=== PATIENT | female | born 1945 | race Caucasian/White ===

== ENCOUNTER 2022-03-30 01:27 | Day surgery (SDC) | payer MEDICARE, OTHER, SELFPAY ==
[2022-03-12 15:13] VITALS: BMI 27.4
[2022-03-30 09:55] VITALS: BP 176/74; PULSE 76; RESP 18; TEMP 36.4; O2SAT 100; BMI 28.8
[2022-03-30] MEDS: LACTATED RINGERS 1,000 ML 150 ML IV CONT (10:12)
--- NOTE | 2022-03-30 10:16 | P.PNAN_ITS ---
Anes - Initial Pre Proc Eval Procedure: Operation Date: 03/30/22 11:00 Proposed Procedures p Screening Colonoscopy - Mckay Anthony MD Date/Time: 03/30/22 10:16 Surgeon: Mckay Anthony MD Pre Op Diagnosis: family hx colon ca Patient Data Age: 76 Gender: F Height: 1.52 m Weight: 67 kg Last Vital Signs Temp 36.4 C L 03/30/22 09:55 Pulse 76 03/30/22 09:55 Resp 18 03/30/22 09:55 BP 176/74 H 03/30/22 09:55 Pulse Ox 100 03/30/22 09:55 O2 Del Method Room Air 03/30/22 09:55 Allergies Allergy/AdvReac Type Severity Reaction Status Date / Time codeine AdvReac Intermediate Gastrointestinal Verified 03/30/22 10:04 Upset diphtheria,pertussis AdvReac Intermediate Unknown Verified 03/30/22 10:04 (acellular),te [From Adacel(Tdap Adolesn/Adult)(PF)] asprin AdvReac Intermediate Gastrointestinal Uncoded 03/30/22 10:04 Upset Home Medications Medication Instructions Recorded Confirmed Type cholecalciferol (vitamin D3) 50 50 mcg PO DAILY 02/03/22 03/30/22 History mcg (2,000 unit) capsule losartan 25 mg tablet 25 mg PO DAILY #90 tabs 02/03/22 03/30/22 Rx alprazolam 0.25 mg tablet (Xanax) 0.25 mg PO TID PRN anxiety #90 tabs 03/02/22 03/30/22 Rx mecobalamin (vitamin B12) 1,000 1,000 mcg PO DAILY 03/12/22 03/30/22 History mcg chewable tablet Patient hx anesthesia problems: none Family hx anesthesia problems: none Results Review: All pre-operative results and documents have been reviewed as part of the pre- operative evaluation. [facility] Past Medical History Medical History Anxiety HTN (hypertension), benign Periodic health assessment, general screening, adult Post-COVID chronic cough Screening for colon cancer Social History Social History Smoking status: Never smoker Alcohol intake: current Drinks per week: 5 Substance use type: does not use Living arrangements: with family Spiritual care concerns: No Anes - Eval Final PreProcedure Day of Procedure 03/30/22 10:16 Patient weight: overweight Heart: regular rate and rhythm Lungs: clear to auscultation Airway: Mallampati scale class II Neurological: alert and oriented Last oral intake: >/= 8 hours ASA classification: II Emergent: no Anesthesia type and monitoring: general GIVS and standard monitoring Results Review: All pre-operative results and documents have been reviewed as part of the pre- operative evaluation. Informed Consent: The patient's anesthetic plan and its attendant risks and benefits were discussed with the patient/family/POA. Questions were solicited and answers provided to the satisfaction of the patient/family/POA.
--- NOTE | 2022-03-30 10:35 | P.HP_ITS ---
History of Present Illness History of Present Illness Consent: Risks, benefits, and alternatives have been discussed and questions answered. Patient agrees to proceed with procedure. Chief complaint: family hx colon ca Narrative: Aidee Forde is a 76 year old female Presents for screening colonoscopy. Patient reports that her current weight appetite bowel movements are normal. She denies abdominal pain. She has had no bleeding. Family history is si gnificant her mother had colon cancer her also had colon cancer. Patient presents today for screening colonoscopy. Review of Systems Review of Systems: Review of systems noncontributory. [facility] Past Medical History Medical History Anxiety HTN (hypertension), benign Periodic health assessment, general screening, adult Post-COVID chronic cough Screening for colon cancer Social History Social History Smoking status: Never smoker Alcohol intake: current Drinks per week: 5 Substance use type: does not use Living arrangements: with family Spiritual care concerns: No Meds Home Medications and Allergies Home Medications Medication Instructions Recorded Confirmed Type cholecalciferol (vitamin D3) 50 50 mcg PO DAILY 02/03/22 03/30/22 History mcg (2,000 unit) capsule losartan 25 mg tablet 25 mg PO DAILY #90 tabs 02/03/22 03/30/22 Rx alprazolam 0.25 mg tablet (Xanax) 0.25 mg PO TID PRN anxiety #90 tabs 03/02/22 1 Rx mecobalamin (vitamin B12) 1,000 1,000 mcg PO DAILY 03/12/22 03/30/22 History mcg chewable tablet Allergies Allergy/AdvReac Type Severity Reaction Status Date / Time codeine AdvReac Intermediate Gastrointestinal Verified 03/30/22 10:04 Upset diphtheria,pertussis AdvReac Intermediate Unknown Verified 03/30/22 10:04 (acellular),te [From Adacel(Tdap Adolesn/Adult)(PF)] asprin AdvReac Intermediate Gastrointestinal Uncoded 03/30/22 10:04 Upset Vital Signs Vital Signs - 24 hr 03/30/22 09:55 Temperature 97.5 F L Pulse Rate 76 Respiratory Rate 18 Blood Pressure 176/74 H Pulse Oximetry 100 Oxygen Delivery Room Air Exam Narrative: Physical exam reveals patient to be alert. Vital signs stable. HEENT exam is unremarkable. Patient is anicteric. Lungs are clear to auscultation and percussion. Heart is without murmur or extra sounds. Abdomen bowel sounds are present soft nontender with no organomegaly. Digital external rectal exam is normal. Assessment and Plan Assessment and plan (1) Screening for colon cancer: Code(s): Z12.11 - Encounter for screening for malignant neoplasm of colon Status: Acute Assessment and Plan: Patient presents for screening colonoscopy. She has a family history of colon cancer in her mother as well as her having had colon cancer. Plan for surveillance colonoscopy at 5 year intervals.
[2022-03-30 11:02] VITALS: BP 119/65; PULSE 73; RESP 13; O2SAT 97
[2022-03-30 11:12] VITALS: BP 122/69; PULSE 72; RESP 16; O2SAT 97
[2022-03-30 11:22] VITALS: BP 122/84; PULSE 71; RESP 18; O2SAT 99
== END 2022-03-30 11:25 | disposition home or self-care (01) ==
PROVIDERS: PCP Physician Assistant Medical; Visit Provider Internal Medicine Gastroenterology
PROC: 0DJD8ZZ Inspection of Lower Intestinal Tract, Via Natural or Artificial Opening Endoscopic (ICD-10-PCS; CPT 45378; principal; 2022-03-30 11:00)
DX: Z12.11 Encounter for screening for malignant neoplasm of colon (principal); K64.8 Other hemorrhoids; K57.30 Diverticulosis of large intestine without perforation or abscess without bleeding; Z80.0 Family history of malignant neoplasm of digestive organs; I10 Essential (primary) hypertension; F41.9 Anxiety disorder, unspecified
CPT/HCPCS: G0105; J2001; J2704; J7120

== ENCOUNTER 2023-05-31 09:36 | Emergency (ER) | payer MEDICARE, OTHER, SELFPAY ==
[2023-05-31 10:03] VITALS: BP 128/65; PULSE 88; RESP 16; TEMP 36.5; O2SAT 99
--- NOTE | 2023-05-31 10:39 | ED.URI ---
HPI - URI/Sore Throat General Chief Complaint: Urogenital-Female Stated Complaint: Urinary Problems and Sore Throat Time Seen by Provider: 05/31/23 10:20 Source: patient Mode of arrival: ambulatory Limitations: no limitations History of Present Illness HPI Narrative: Aidee is a 77-year-old female patient presenting to the clinic today with complaints of possible UTI. She reports that she is having urinary symptoms started last night with burning and frequency of urination. Also complaining of a cough with congestion and sore throat. MD elicited complaint: cough, sore throat, nasal congestion and other (UTI) Related Data Home Medications Medication Instructions Recorded Confirmed cholecalciferol (vitamin D3) 50 50 mcg PO DAILY 02/03/22 02/18/23 mcg (2,000 unit) capsule mecobalamin (vitamin B12) 1,000 1,000 mcg PO DAILY 03/12/22 02/18/23 mcg chewable tablet vitamin E (dl, acetate) 45 mg (100 45 mg PO DAILY 02/18/23 02/18/23 unit) capsule Allergies Allergy/AdvReac Type Severity Reaction Status Date / Time codeine AdvReac Intermediate Gastrointestinal Verified 02/18/23 10:11 Upset diphtheria,pertussis AdvReac Intermediate Unknown Verified 02/18/23 10:11 (acellular),te [From Adacel(Tdap Adolesn/Adult)(PF)] asprin AdvReac Intermediate Gastrointestinal Uncoded 02/18/23 10:11 Upset Review of Systems Review of Systems: Pertinent positives per HPI. Patient denies any fever, chills, rash, headache, visual changes, dizziness, shortness of breath, chest pain, palpitations, nausea, vomiting, diarrhea, constipation, abdominal pain PMF Past Medical History Medical History (Updated 05/31/23 @ 10:41 by Sebastian Masters APRN) Anxiety HTN (hypertension), benign Post-COVID chronic cough Screening for colon cancer Vitamin D deficiency Social History Social History Smoking status: Never smoker Alcohol intake: current Drinks per week: 5 Substance use type: does not use Living arrangements: with family Spiritual care concerns: No Comments At the time of my signature, I reviewed and agree with the nursing past medical, surgical, social, and family history. There is no relevant family history pertinent to the patient complaint. Exam Narrative: General: Well-developed, well nourished, in no apparent distress Head: Normocephalic, atraumatic Eyes: Pupils equally round and reactive to light bilaterally, EOM intact, sclera and conjunctive clear, no discharge, lids normal Ears: TMs intact and clear, ear canals clear, no drainage, grossly hearing normal. Nose: Nares patent, clear nasal discharge, no inflammation, no sinus tenderness. Mouth: Oral pharynx red without lesions or masses, good dentition, MMM. Neck: Supple, trachea midline, no enlargement of anterior or posterior cervical nodes, no thyroid masses or goiter palpable. Cardio: Regular rate and rhythm, s1 and s2 normal, no murmur appreciated. Resp: Clear to auscultation bilaterally, no rhonchi, rales, wheezing or rubs Abdomen: Soft, pliable, bowel sounds present in all quadrants, non-tender to palpation, no organomegly, no CVAT tenderness. Course Course Emergency Course: Portions of this record may have been created with voice recognition software. Level of Care: Express Care Visit Vital Signs Vital signs: Vital Signs Temperature 36.5 C 05/31/23 10:03 Pulse Rate 88 05/31/23 10:03 Respiratory Rate 16 05/31/23 10:03 Blood Pressure 128/65 05/31/23 10:03 Pulse Oximetry 99 05/31/23 10:03 Temperature 36.5 C 05/31/23 10:03 Pulse Rate 88 05/31/23 10:03 Respiratory Rate 16 05/31/23 10:03 Blood Pressure 128/65 05/31/23 10:03 Pulse Oximetry 99 05/31/23 10:03 Vital signs reviewed MDM - URI/Sore Throat MDM Narrative Medical decision making narrative: At the time of visit patient is resting comfortably on the ex
== END 2023-05-31 10:50 | disposition home or self-care (01) ==
PROVIDERS: Emergency Provider Nurse Practitioner Family; PCP Physician Assistant Medical
DX: J06.9 Acute upper respiratory infection, unspecified (principal); J02.9 Acute pharyngitis, unspecified; N39.0 Urinary tract infection, site not specified; I10 Essential (primary) hypertension; E55.9 Vitamin D deficiency, unspecified; Z20.822 Contact with and (suspected) exposure to COVID-19
CPT/HCPCS: 81003; 87077; 87081; 87086; 87186; 87426; 87804; 87880; 99213; C9803; G0463

== ENCOUNTER 2023-08-02 08:44 | Outpatient (CLI) | payer MEDICARE, OTHER, SELFPAY ==
--- NOTE | ~2023-08-02 | DEXA_ITS ---
Bone Density Report Name: JASON HARDING I Age: 77 Sex: Female Ethnicity: White Date of : 1945 Indication: postmenopausal; screening for osteoporosis; height loss; hysterectomy; Referring Provider: LIVE LECHUGA I. Study: Bone densitometry was performed. Exam Date: August 02, 2023 Accession number: [id number] Bone Density: Region BMD T-score Z-score Classification AP Spine(L1-L4) 0.763 -2.6 0.0 Osteoporosis Femoral Neck (Left) 0.736 -1.0 1.2 Normal Total Hip (Left) 0.776 -1.4 0.6 Osteopenia Femoral Neck (Right) 0.609 -2.2 0.1 Osteopenia Total Hip (Right) 0.689 -2.1 -0.1 Osteopenia Total Hip Mean 0.732 -1.8 0.3 Osteopenia World Health Organization criteria for BMD impression classify patients as: Normal (T-score at or above -1.0), Osteopenia (T-score between -1.0 and -2.5), or Osteoporosis (T-score at or below -2.5). 10-year Fracture Risk: FRAX not reported because: Some T-score for Spine Total or Hip Total or Femoral Neck at or below -2.5 Clinical Information Provided by Patient: Has used the following medications: Vitamin D Has the following medical conditions: Hysterectomy Patient maximum height was 61 Menopause Age: 52 Does not regularly consume dairy products Drinks caffeinated beverages Onset of menses at age 10 Number of children 2 Impression: The patient has osteoporosis, based on the Total Spine T-score. Discussion: INCREASED RISK OF FRACTURE. BONE DENSITY IS UNDESIRABLY LOW AT ONE OR MORE SKELETAL SITES, CONSISTENT WITH POSTMENOPAUSAL OSTEOPOROSIS. This patient's lowest T-score meets the World Health Organization's (WHO) criteria for osteoporosis at one or more sites (T-score -2.5 or below). In untreated patients, the risk of osteoporotic fracture increases approximately two-fold for each 1.0 SD decrease in T-score. Low bone density is not the only risk factor for fracture; also consider factors such as patient's age, frailty or poor health, risk of falling, risk of injury, previous osteoporotic fracture, family history of osteoporosis, cigarette smoking, low body weight, etc. Not everyone with low bone mineral density has osteoporosis; osteomalacia and other metabolic bone disorders should also be considered. Patients who have osteoporosis should be evaluated for specific diseases and conditions (secondary causes) that may cause or contribute to bone loss. The [place] [employer]ocrinologists (AACE) and National Osteoporosis Foundation (NOF) recommend pharmacologic intervention for all postmenopausal women whose T-score is in this range. The patient should follow a healthful lifestyle (good nutrition with adequate calcium and vitamin D, and appropriate weight-bearing exercise). Follow-Up: Consider a repeat BMD and Vertebral Fracture Assessment (V
== END 2023-08-02 08:45 | disposition home or self-care (01) ==
PROVIDERS: PCP Physician Assistant Medical; Visit Provider Physician Assistant Medical
DX: E89.40 Asymptomatic postprocedural ovarian failure (principal); M81.0 Age-related osteoporosis without current pathological fracture; M85.852 Other specified disorders of bone density and structure, left thigh; M85.851 Other specified disorders of bone density and structure, right thigh
CPT/HCPCS: 77080

== ENCOUNTER 2024-02-24 11:51 | Emergency (ER) | payer MEDICARE, OTHER, SELFPAY ==
[2024-02-24 12:03] VITALS: BP 107/77; PULSE 84; RESP 16; TEMP 36.6; O2SAT 99
--- NOTE | 2024-02-24 12:16 | ED.EAR ---
HPI - Ear Problem General Chief complaint: Ear Stated complaint: Ear Pain Time Seen by Provider: 02/24/24 12:17 Source: patient, RN notes reviewed and old records reviewed Mode of arrival: ambulatory Limitations: no limitations History of Present Illness HPI Narrative: 78-year-old female to Express Care with complaint of right ear pressure, sensation of swelling, postnasal drainage for 3 days. Patient also endorsing decreased hearing in right ear. Patient denies fever, sore throat, cough, pain, pertinent medical history. Patient reports that symptoms were acutely worse upon awakening this morning. Patient able to tolerate fluids by mouth. Patient resting in exam room in no acute distress. Respirations even and nonlabored. Patient able to speak in complete sentences without difficulty. Related Data Home Medications Medication Instructions Recorded Confirmed mecobalamin (vitamin B12) 1,000 1,000 mcg PO DAILY 03/12/22 02/24/24 mcg chewable tablet vitamin E (dl, acetate) 45 mg (100 45 mg PO DAILY 02/18/23 02/24/24 unit) capsule calcium 650 mg-vitamin D3 12.5 1 tablet PO DAILY 11/10/23 02/24/24 mcg-vitamin K 40 mcg chewable tablet (Viactiv) Allergies Allergy/AdvReac Type Severity Reaction Status Date / Time codeine AdvReac Intermediate Gastrointestinal Verified 11/10/23 15:16 Upset diphtheria,pertussis AdvReac Intermediate Unknown Verified 11/10/23 15:16 (acellular),te [From Adacel(Tdap Adolesn/Adult)(PF)] asprin AdvReac Intermediate Gastrointestinal Uncoded 11/10/23 15:16 Upset Review of Systems Review of Systems: All systems reviewed & are unremarkable except as noted in HPI and below Constitutional: Constitutional: Reports no additional constitutional complaints Eyes: Eyes: Reports no additional eye complaints ENT: Reports as per HPI, Reports otalgia (Right ear pressure, swelling) and Reports post nasal drip Cardiovascular: Cardiovascular: Reports no additional cardiovascular complaints, Denies chest pain and Denies dyspnea Respiratory: Respiratory: Reports no additional respiratory complaints, Denies cough and Denies dyspnea Musculoskeletal: Musculoskeletal: Reports no additional musculoskeletal complaints Neurologic: Reports system reviewed and no additional complaints, except as documented Psychiatric: Psychiatric: Reports no additional psychiatric complaints PMFSH Past Medical History Medical History Anxiety Bilateral lower extremity edema HTN (hypertension), benign Post-COVID chronic cough Screening for colon cancer Vitamin D deficiency Social History Social History Smoking status: Never smoker Alcohol intake: current Drinks per week: 5 Substance use type: does not use Living arrangements: with family Spiritual care concerns: No Comments At the time of my signature, I reviewed and agree with the nursing past medical, surgical, social, and family history. There is no relevant family history pertinent to the patient complaint. Exam Const: General: cooperative, healthy appearing, comfortable, no acute distress, alert and well nourished Nutritional Appearance: well nourished Orientation/consciousness: patient oriented x3 Limitations: no limitations HENMT: Head: normal to inspection Ears: external ears normal, Abnormal EAC present EAC tenderness on the right and TM abnormal dull on the right, with fluid behind the TM on the right and with loss of landmarks on the right Face/Nose/Sinus: Normal external nose present, Normal nares present, normal facial exam, No erythema and No edema Face and sinus: normal facial exam, no erythema and no edema Mouth: Yes Normal oral and palatal mucosa present Throat: postnasal drainage Eyes: General: appearance normal, both eyes and all related structures Neck: Neck: normal visual inspectio
== END 2024-02-24 12:46 | disposition home or self-care (01) ==
PROVIDERS: Emergency Provider Nurse Practitioner Family; PCP Physician Assistant Medical
DX: H66.91 Otitis media, unspecified, right ear (principal); I10 Essential (primary) hypertension; Z86.16 Personal history of COVID-19; E55.9 Vitamin D deficiency, unspecified
CPT/HCPCS: 99213; G0463

== ENCOUNTER 2024-05-09 10:08 | Outpatient (CLI) | payer MEDICARE, OTHER, SELFPAY ==
--- NOTE | ~2024-05-09 | US_ITS ---
EXAMINATION: US_VDOPREFBI_US DATE: 05/09/2024 11:21 INDICATION: Lower limb edema. TECHNIQUE: Grayscale ultrasound images without and with compression and Doppler ultrasound images of the bilateral lower extremity veins were obtained. COMPARISON: None. FINDINGS: The visualized portions of right common femoral vein, profunda (deep) femoral vein, femoral vein, pop liteal vein, peroneal veins, and posterior tibial veins are patent. Regular saphenous vein measures 4 mm in the upper thigh, 2 mm in the lower thigh, and 3 mm in the calf without reflux. Right small sap henous vein measures 3 mm in the upper calf and 2 mm in the lower calf without reflux. The visualized portions of left common femoral vein, profunda femoral vein, femoral vein, popliteal v ein, peroneal veins, and posterior tibial veins are patent. Left greater saphenous vein measures 3 mm in the upper thigh, 3 mm in the lower thigh, and 2 mm in the calf without reflux. Left small sapheno us vein measures 3 mm in the upper calf and 2 mm in the lower calf without reflux. IMPRESSION: 1. No reflux. Reviewed, dictated and finalized at location A. [employer] DEVELOPER IMPRESSION: 1. No reflux.
== END 2024-05-09 10:09 | disposition home or self-care (01) ==
PROVIDERS: PCP Physician Assistant Medical; Visit Provider Physician Assistant Medical
DX: I87.2 Venous insufficiency (chronic) (peripheral) (principal); R60.9 Edema, unspecified
CPT/HCPCS: 93970

== ENCOUNTER 2024-05-11 16:50 | Outpatient (CLI) | payer MEDICARE, OTHER, SELFPAY ==
--- NOTE | ~2024-05-11 | CT_ITS ---
EXAMINATION: CT sinus wo con DATE: 05/11/2024 17:14 INDICATION: Chronic ethmoidal sinusitis TECHNIQUE: Computed tomography (CT) of the paranasal sinuses was performed without contrast. Iterativ e reconstruction technique was employed. Exam dose: 190.29 mGy-cm total exam DLP. COMPARISON: None FINDINGS: There is prominent rightward deviation of the nasal septum. There is bilateral soft tissue swelling of the inferior nasal turbinates. Intralamellar cell of the left middle nasal turbinate. The ostiomeatal units are patent. There are several foci of minimal soft tissue thickening in the right ethmoid air cells. Mild focal posterior medial soft tissue thickening of the left sphenoid sinus. The paranasal sinuses are otherwise normally developed and aerated. The mastoid air cells are well-developed and aerated. IMPRESSION: Prominent rightward septal deviation Intralamellar cell of the left middle nasal turbinate Several foci of soft tissue thickening in the ethmoid air cells and focal mild posteromedial left sph enoid sinus mucoperiosteal thickening Otherwise normal paranasal sinuses and mastoid air cells Reviewed, dictated and finalized at [facility]. Reviewed, dictated and finalized at location A. RLY IMPRESSION: Prominent rightward septal deviation Intralamellar cell of the left middle nasal turbinate Several foci of soft tissue thickening in the ethmoid air cells and focal mild posteromedial left sphenoid sinus mucoperiosteal thickening Otherwise normal paranasal sinuses and mastoid air cells
== END 2024-05-11 16:51 | disposition home or self-care (01) ==
LOC: ANHIMG 16:52
PROVIDERS: PCP Physician Assistant Medical; Visit Provider Otolaryngology
DX: J32.2 Chronic ethmoidal sinusitis (principal); J34.2 Deviated nasal septum
CPT/HCPCS: 70486

== ENCOUNTER 2024-05-25 09:02 | Emergency (ER) | payer MEDICARE, OTHER, SELFPAY ==
[2024-05-25 09:15] VITALS: BP 108/66; PULSE 72; RESP 18; TEMP 36.6; O2SAT 98
--- NOTE | 2024-05-25 09:43 | ED_ITS ---
HPI - URI/Sore Throat General Chief Complaint: Upper Respiratory Infection Stated Complaint: Sinus Problems, Headache Time Seen by Provider: 05/25/24 09:23 Source: patient and RN notes reviewed Mode of arrival: ambulatory Limitations: no limitations History of Present Illness HPI Narrative: Patient presents today complaining of headache, chills, scratchy throat, postnasal drip, and cough since last night. Denies fever or shortness of breath. She is currently pain-free. She has been taking Mucinex and Advil without much relief. Patient has recently been diagnosed by ENT for her chronic postnasal drainage and congestion and has been diagnosed with chronic sinusitis. She has been referred to a different ENT specialist that she will see in 1 week Related Data Home Medications ?Medication ?Instructions ?Recorded ?Confirmed ?Last Taken ?Type mecobalamin (vitamin B12) 1,000 1,000 mcg PO DAILY 03/12/22 05/25/24 Unknown History mcg chewable tablet vitamin E (dl, acetate) 45 mg (100 45 mg PO DAILY 02/18/23 05/25/24 Unknown History unit) capsule calcium 650 mg-vitamin D3 12.5 1 tablet PO DAILY 11/10/23 05/25/24 Unknown H istory mcg-vitamin K 40 mcg chewable tablet (Viactiv) biotin 10,000 mcg chewable tablet mcg PO 04/11/24 05/08/24 Unknown History (Hair, Skin and Nails (biotin)) Allergies Allergy/AdvReac Type Severity Reaction Status Date / Time codeine AdvReac Intermediate Gastrointestinal Verified 05/25/24 09:13 Upset diphtheria,pertussis AdvReac Intermediate Unknown Verified 05/25/24 09:13 (acellular),te (From Adacel(Tdap Adolesn/Adult)(PF)) asprin AdvReac Intermediate Gastrointestinal Uncoded 05/25/24 09:13 Upset Review of Systems Review of Systems: CONSTITUTIONAL: Denies body aches, fever, or sweats.+ chills EYES: Denies visual changes, redness, or discharge. ENT: Denies rhinorrhea, or otalgia.+ congestion, scratchy throat, postnasal drip CARDIOVASCULAR: Denies chest pain, palpitations, or edema. RESPIRATORY: Denies dyspnea.+ cough GASTROINTESTINAL: Denies abdominal pain, nausea, vomiting, or diarrhea. GENITOURINARY: Denies dysuria or hematuria. SKIN: Denies rash, itching, or wounds. MUSCULOSKELETAL: Denies back pain, joint pain, or myalgia. NEUROLOGIC: Denies numbness, tingling, or weakness.+ headache PSYCH: Denies depression or anxiety. [facility] Past Medical History Medical History Dyslipidemia Bilateral lower extremity edema Vitamin D deficiency Anxiety HTN (hypertension), benign Post-COVID chronic cough Screening for colon cancer Social History Social History Social History: 04/04/24 very confident with medical forms Smoking status: Never smoker Alcohol intake: current Drinks per week: 5 Substance use type: does not use Do You Feel Safe in your Home?: Yes Lack of Transportation: No Lack of Food: Never True Current Housing: I Have Housing Concerned About Future Housing: No Difficulty Paying Gas/Electric Bills: No Difficulty Paying for Meds: No Currently Unemployed: No Education: Bachelor's Degree Difficulty w/ Childcare or Family Care: No Living arrangements: with family Spiritual care concerns: No Comments At time of signature, I have reviewed and agree with nursing past medical, surgical, social and family history unless otherwise noted. Please see nursing chart for further information. There is no relevant family history pertinent to the presenting complaint Exam Narrative: GENERAL: Mildly-appearing, well-nourished, and in no acute distress. HEAD: Normocephalic, atraumatic. EYES: EOMI. No redness or drainage. Conjunctivae normal. ENT: Mucous membranes pink and moist. Nares congestion. No rhinorrhea. TMs normal bilaterally. Throat normal. Uvula midline. NECK: Normal AROM. Supple. No lymphadenopathy. CHEST: No respiratory distress. Clear to auscultation. HEART: Regular rate and rhythm. No murmur appreciated. EXTREMITIES: Normal range of motion. No edema. SKIN: Warm, dry, no rash. Capillary refill normal. Normal skin turgor. NEURO: No focal deficits. Alert and oriented x3. Gait steady. PSYCH: Normal affect. No signs of depression or anxiety. Course Course Level of Care: Express Care Visit Vital Signs Vital signs: Vital Signs Temperature 97.8 F 05/25/24 09:15 Pulse Rate 72 12/20/24 09:15 Respiratory Rate 18 05/25/24 09:15 Blood Pressure 108/66 05/25/24 09:15 Pulse Oximetry 98 05/25/24 09:15 Oxygen Delivery Room Air 05/25/24 09:15 Temperature 97.8 F 05/25/24 09:15 Pulse Rate 72 05/25/24 09:15 Respiratory Rate 18 05/25/24 09:15 Blood Pressure 108/66 05/25/24 09:15 Pulse Oximetry 98 05/25/24 09:15 Oxygen Delivery Room Air 05/25/24 09:15 Review MDM - URI/Sore Throat MDM Narrative Medical decision making narrative: Patient declined testing for influenza or COVID-19. Symptoms likely viral in etiology. Discussed [id number] medication use and duration of illness. No prescription medications indicated at this time. Anticipatory guidance given. Differential Diagnosis Differential diagnosis: Likely upper respiratory infection, otitis media, viral infection, influenza, pharyngitis and other (COVID) Critical Care Time Critical Care Time Critical Care Time: No Discharge Plan Discharge Clinical Impression: Upper respiratory infection Qualifiers: URI type: unspecified URI Qualified Code(s): J06.9 - Acute upper respiratory infection, unspecified Patient Disposition: Home, Self-Care Condition: Stable Instructions: Upper Respiratory Infection (DC) Additional Instructions: Your symptoms are likely due to a viral illness, which is not treated with antibiotics. Virus symptoms can last for up to 7-10days. Take Tylenol for pain or fever. Continue Mucinex if needed for chest congestion/cough. Rest and stay hydrated. Follow up with your PCP in 7-10 days if symptoms are not improving. Go to the ER immediately if you develop shortness of breath, difficulty swallowing, or any other concerning symptoms. Patient Language: Upper Sorbian Prescriptions: No Action vitamin E (dl, acetate) 45 mg (100 unit) capsule 45 mg PO DAILY calcium-vitamin D3-vitamin K [Viactiv] 650 mg-12.5 mcg-40 mcg tablet,chewable 1 tablet PO DAILY Hair, Skin and Nails (biotin) 10,000 mcg tablet,chewable PO mecobalamin (vitamin B12) 1,000 mcg Tablet,Chewable 1,000 mcg PO DAILY losartan 25 mg tablet 25 mg PO DAILY Qty: 90 1RF alprazolam [Xanax] 0.25 mg tablet 0.25 mg PO TID PRN (Reason: anxiety) Qty: 90 0RF furosemide 40 mg tablet 20 - 40 mg PO QAM PRN (Reason: lower extremity swelling) Qty: 90 0RF Follow-up/Referrals: Shea Lemon PA-C [Primary Care Provider] - Time of Disposition: 09:46
== END 2024-05-25 09:50 | disposition home or self-care (01) ==
PROVIDERS: Emergency Provider Nurse Practitioner; PCP Physician Assistant Medical
DX: J06.9 Acute upper respiratory infection, unspecified (principal); E78.5 Hyperlipidemia, unspecified; I10 Essential (primary) hypertension; E55.9 Vitamin D deficiency, unspecified
CPT/HCPCS: 99211; G0463

== ENCOUNTER 2024-07-03 09:11 | Outpatient (CLI) | payer MEDICARE, OTHER, SELFPAY ==
--- NOTE | ~2024-07-03 | US_ITS ---
US arterial ankle brachial ind INDICATION: Hypertension. TECHNIQUE: Segmental pressures and plethysmographic and Doppler waveforms of the brachial and lower e xtremity arteries were obtained. COMPARISON: None. FINDINGS: Right and left brachial artery pressures of 104 mm Hg and 110 mm Hg, respectively, are concordant (no rmal difference <= 30 mmHg). The right ankle-brachial index (MONICA) is 1.11 (normal >= 0.9-1.0). The right great toe-brachial index (TBI) is 0.51 (normal >= 0.60). The left MONICA is 1.17. The left TBI is 0.68. IMPRESSION: 1. Normal ankle-brachial indices. 2: Mildly decreased right toe brachial index consistent with peripheral arterial disease. Reviewed, dictated and finalized at location A. ING ENGINEER IMPRESSION: 1. Normal ankle-brachial indices. 2: Mildly decreased right toe brachial index consistent with peripheral arteri al disease.
--- OUTSIDE RECORDS SUMMARY | 2024-07-03 09:32 | XMS_ITS | Referral Summary ---
Author Organization [facility] Address [address] [place] [address] Care Team Providers Care University Internship Name Role Phone Shea Lemon PA-C Primary Care Provider [phone] Source Comments [facility],non-owned Affiliates and Associated Physician Practices is amultiple site organization consisting of ambulatory clinics and hospital sitesin [place], [place], [place] and [place]. This disclosure is being madepursuant to the Care Everywhere program and may not contain all information available regarding this patient. Last updated 18.[facility] Allergies Active Allergy Reactions Criticality Noted Date Comments Codeine Nausea and/or Vomiting High 04/11/2021 Medications * Be aware that medications may not be up to date on this document. Alwaysverify current medications with the patient. Medication Sig Dispensed Refills Start Date End Date Status losartan (Cozaar) 25 MG tablet Take 1 (one) tablet by mouth once daily 05/19/2023 Active ALPRAZolam (Xanax) 0.25 MG tablet Take 1 (one) tablet by mouth anxiety 05/20/2023 Active Active Problems Problem Noted Date Diagnosed Date Left hip pain 07/11/2023 Sciatica of left side 07/11/2023 Social History Tobacco Use Types Packs/Day Years Used Date Smoking Tobacco: Never Assessed PHQ-2 Answer Date Recorded Patient Health Questionnaire-2 Score 0 07/11/2023 Sex and Gender Information Value Date Recorded Sex Assigned at Not on file Gender Identity Not on file Sexual Orientation Not on file Last Filed Vital Signs Vital Sign Reading Time Taken Comments Blood Pressure - - Pulse - - Temperature - - Respiratory Rate - - Oxygen Saturation - - Inhaled Oxygen Concentration - - Weight 65.3 kg (144 lb) 07/11/2023 8:48 AM AUTOMOBILE SALESMAN Height 152.4 cm (5') 07/11/2023 8:48 AM AUTOMOBILE SALESMAN Body Mass Index 28.12 07/11/2023 8:48 AM AUTOMOBILE SALESMAN Plan of Treatment Not on file Care Teams University Internship Relationship Specialty Start Date End Date Shea Lemon PA-C [address] [place] [id number] PCP - General Physician Tank Builder 07/04/23
--- OUTSIDE RECORDS SUMMARY | 2024-07-03 09:32 | XMS_ITS | Clinical Summary ---
Author Organization [facility] Address [address] [place] [address]. [place], [place] [id number] [place] [address] Care Team Providers Care Metallurgist Process Name Role Phone Justin Jeff MD Primary Care Provider [phone] Allergies Active Allergy Reactions Criticality Noted Date Comments Aspirin Nausea Only 09/17/2021 Codeine Nausea and Vomiting High 04/11/2021 Medications ALPRAZolam 0.25 MG tablet Take 0.25 mg by mouth 3 (three) times daily as needed. 03/31/2021 Active lisinopril 10 MG tablet Take 2.5 mg by mouth daily. 01/08/2021 Active pantoprazole EC 40 MG tablet Take 40 mg by mouth daily. Active Immunizations Name Administration Dates Next Due MODERNA COVID-19 (12+) MRNA, LNP-S, PF, 100 MCG/ 0.5 ML DOSE 07/01/2020,06/03/2020 Family History Medical History Relation Comments No Known Problems Father No Known Problems Mother Relation Status Comments Father Mother Social History Tobacco Use Types Packs/Day Years Used Date Smoking Tobacco: Never Smokeless Tobacco: Never Tobacco Cessation:Counseling Given: No Comments:NA Alcohol Use Standard Drinks/Week Comments Yes 13.3 (1 standard drink = 0.6 oz pure alcohol) Occasional PHQ-2 Answer Date Recorded PHQ-2 Score - If the patient scores above 3, please move on to questions 3-9 0 09/17/2021 Comments No Sex and Gender Information Value Date Recorded Sex Assigned at Not on file Legal Sex Female 7:46 PM CDT Gender Identity Female 09/14/2021 9:58 AM CDT Sexual Orientation Not on file Last Filed Vital Signs Vital Sign Reading Time Taken Comments Blood Pressure 170/71 11/29/2021 5:56 PM CDT Pulse 97 11/29/2021 5:56 PM CDT Temperature 37.7 ??C (99.9 ??F) 11/29/2021 5:56 PM CD T Respiratory Rate 18 11/29/2021 5:56 PM CDT Oxygen Saturation 97% 11/29/2021 5:56 PM CDT Inhaled Oxygen Concentration - - Weight 56.7 kg (125 lb) 11/29/2021 5:56 PM CDT Height 152.4 cm (5') 11/29/2021 5:56 PM CDT Body Mass Index 24.41 11/29/2021 5:56 PM CDT Plan of Treatment Health Maintenance Due Date Last Done Comments Hepatitis C 1962 DTaP, Tdap and Td Vaccines ( 1 - Tdap) 08/15/1963 Zoster Vaccines (1 of 2) 1994 Annual Medicare Wellness Visit 2009 Dexa Scan (General) 2009 Pneumococcal Vaccine: 65+ Years (1 of 1 - PCV) 2009 RSV Immunization or 60+ Years (1 - 1-dose 75+ series) 08/15/2019 COVID-19 Vaccine (3 - 2023-2 5 season) 2024 07/01/2020, 06/03/2020 Influenza Adult (#1) 2024 03/05/2020 Meningococcal B Vaccine Aged Out No l onger eligible based on patient's age to complete this topic Meningococcal Vaccine Aged Out No marilu alexandro eligible based on patient's age to complete this topic RSV Immunizations Under 20 Months Aged Out No longer eligible b ased on patient's age to complete this topic [place] [id number] MEDICARE [facility] Care Teams Metallurgist Process Relationship Specialty Start Date End Date Justin Jeff MD [address] [place] [id number] PCP - General INTERNAL MEDICINE 04/11/21
--- OUTSIDE RECORDS SUMMARY | 2024-07-03 09:32 | XMS_ITS | Patient Health Summary ---
Author Organization [facility] Address [address] [facility] [address] Care Team Providers Care Laboratory Operations Coordinator Name Role Phone Shea Lemon PA-C Primary Care Provider [phone] Note from [facility],non-owned Affiliates and Associated Physician Practices is amultiple site organization consisting of ambulatory clinics and hospital sitesin [place], [place], [place] and [place]. This disclosure is being madepursuant to the Care Everywhere program and may not contain all information available regarding this patient. Last updated 18.[facility] Allergies * Codeine(Nausea and/or Vomiting) -High Criticality Medications * Be aware that medications may not be up to date on this document. Alwaysverify current medications with the patient. * losartan (Cozaar) 25 MG tablet(Started 05/19/2023) Take 1 (one) tablet by mouth once daily * ALPRAZolam (Xanax) 0.25 MG tablet(Started 05/20/2023) Take 1 (one) tablet by mouth anxiety Active Problems Problem Noted Date Diagnosed Date [...] 65.3 kg (144 lb) 07/11/2023 8:48 AM LITHOGRAPH PRESS OPERATOR Height 152.4 cm (5') 07/11/2023 8:48 AM LITHOGRAPH PRESS OPERATOR Body Mass Index 28.12 07/11/2023 8:48 AM LITHOGRAPH PRESS OPERATOR Procedures * XR HIP LEFT 2VW OR MORE(Performed 07/11/2023) Performed for Left hip pain * GROSS + MICRO EXAM(Performed 04/16/1997) Results * XR HIP LEFT 2VW OR MORE (07/11/2023 8:47 AM LITHOGRAPH PRESS OPERATOR) Narrative [facility] [address] - 07/11/2023 8:48 AM LITHOGRAPH PRESS OPERATOR Please see progress note in Epic for results. Adan Mendez BRONC BREAKER-NIGHT WAREHOUSE MANAGER DIAGNOSTIC IMAG ING ORDERABLES [facility] [address] * GROSS + MICRO EXAM (04/16/1997 1:49 PM LITHOGRAPH PRESS OPERATOR) Result CASE NUMBER [id number] Comment: ORDERING PHYSICIAN ??MIGUEL ÁNGEL CAI SPECIMEN TYPE ?Peritoneal-implant Date ? 04/16/1997 Physician ?Kevench Gross Description ? Specimens are received in 2 formalin-filled containers labeled with the patient's name. ??The first specimen is labeled peritoneal implant , and consists of 2 fragments of bill tissue with a blue hue measuring 1 cm x 0.5 cm x 0.3 cm. ??The entire specimen is submitted in cassette A. The second container is labeled uterus with cervix, right and left tubes and ovaries . ??The specimen consists of all of the above, weighing 155 grams. ??The uterus measures 10 cm in length x 6.4 cm x 4.8 cm in AP dimension. ??The serosal surface is slightly hemorrhagic but smooth and bill-red. ??Two small subserosal nodules measuring 0.6 cm, each in greatest dimension, are found in the left posterior area of the specimen. ??Two additional subserosal nodules are noted around the origin of the fallopian tubes measuring 1.6 cm in greatest dimension on the left, and 1 cm in greatest dimension on the right. ??No obvious areas of endometriosis are noted. ??The cervical mucosa is smooth and pink-bill. ??The endocervical mucosa and endometrial mucosa are both smooth and bill without mass lesions. ??The myometrium measures 0.5 cm in average width. ??There is a single intramural leiomyoma found on serial sectioning measuring 0.6 cm in greatest dimension. ??It has the similar whorled white cut surface that the subserosal leiomyomas display. ??Sections of the uterus are submitted as follows ?? the anterior cervix, cassette B ??the anterior uterine wall, cassette C ??posterior cervix, cassette D ??posterior uterine wall, cassette E ??subserosal leiomyomas, cassette F ??the left ovary has a vaguely lobular bill- yellow appearance and measures 2.9 cm x 1.6 cm x 0.7 cm. ??The patient appears to have undergone a previous tubal ligation bilaterally. ??The left fallopian tube measures 2.7 cm in length x 0.4 cm in diameter. ??Natural Sciences Manager sections of the left ovary and fallopian tube are submitted in cassette G. ??The left ovary has a smooth bill-yellow appearance measuring 2.5 cm x 1.6 cm x 1.4 cm and the right fallopian tube which as noted has been previously ligated measures 2.7 cm in length x 0.7 cm in greatest diameter. ??On sectioning, a single corpus luteum measuring 3 mls in greatest dimension is found as well as 2 hemorrhagic cysts ??one surrounded by a similar orange tissue are found. ??The largest measures 0.5 cm in greatest dimension. ??Natural Sciences Manager sections of the right ovary and fallopian tube are submitted in cassette H. ? DK/lmj Microscopic Exam ? Section labeled A of the peritoneal implant show fragments of fibrous tissue with endometrial glands, some of which are dilated. The glands are surrounded by endometrial type of stroma. ??No malignancy is seen. Sections of the cervix are focally surfaced by squamous epithelium showing normal maturation, focally by columnar epithelium. ??Focal squamous metaplasia is noted. Sections of the endometrium/myometrium are examined. ??Within the myometrium, well-circumscribed leiomyomas composed of interlacing bundles of smooth muscle are present. ?? Also in section labeled F, foci of adenomyosis are seen. ?? The endometrium shows weakly proliferative pattern. ?? Both fallopian tubes and ovaries show unremarkable histology. Diagnosis ? I. ??Peritoneal implant ? A. ??Endometriosis. ?II. ??Uterus, cervix and bilateral tubes and ovaries ? A. ??Cervix ? 1. ??Focal squamous metaplasia. ? B. ??Endometrium ? 1. ??Weakly proliferative pattern. ? C. ??Myometrium ? 1. ??Leiomyomata. ? 2. ??Adenomyosis. ? D. ??Ovaries, bilateral ? 1. ??No pathologic diagnosis. ? E. ??Fallopian tubes, bilateral ? 1. ??No pathologic diagnosis. Hadoop Architect ? bk Pathologist ?Shankar Nguyen M.D. [place]. ?04/17/1997 1915 <7> CPT code ? 86358 MISCELLANEOUS SAMPLES / Unknown 04/16/1997 1:49 PM LITHOGRAPH PRESS OPERATOR 04/16/1997 1:49 PM LITHOGRAPH PRESS OPERATOR Historical Provider LAB - PATHOLOGY/C YTOLOGY ORDERABLES Care Teams Laboratory Operations Coordinator Relationship Specialty Start Date End Date Shea Lemon PA-C [address] [place] [id number] PCP - General Physician Manager Recruitment 07/04/23
--- OUTSIDE RECORDS SUMMARY | 2024-07-03 09:32 | XMS_ITS | Clinical Summary ---
Author Organization [facility] Address [address] [place] [address] Care Team Providers Care Coding Validator Name Role Phone Shea Lemon PA-C Primary Care Provider [phone] Source Comments [facility],non-owned Affiliates and Associated Physician Practices is amultiple site organization consisting of ambulatory clinics and hospital sitesin [place], [place], [place] and [place]. This disclosure is being madepursuant to the Care Everywhere program and may not contain all information available regarding this patient. Last updated 18.[facility] Allergies Active Allergy Reactions Criticality Noted Date [...] 65.3 kg (144 lb) 07/11/2023 8:48 AM AERIAL PHOTOGRAPHER Height 152.4 cm (5') 07/11/2023 8:48 AM AERIAL PHOTOGRAPHER Body Mass Index 28.12 07/11/2023 8:48 AM AERIAL PHOTOGRAPHER Plan of Treatment Health Maintenance Due Date Last Done Comments BONE DENSITY TESTING 1945 MEDICARE AWV ? 12 MONTHS 1945 DTAP/TDAP/TD VACCINES (1 - Tdap) 08/15/1963 PNEUMOCOCCAL VACCINE 50+ (1 of 1 - PCV) 1994 ZOSTER VACCINE (1 of 2) 1994 Respiratory Syncytial Virus (RSV) Vaccine Pt: or over 60 yrs (1 - 1-dose 75+ series) 08/15/2019 COVID-19 VACCINE (3 - 2023-2 5 season) 2024 07/01/2020, 06/03/2020 INFLUENZA VACCINE (#1) 2024 DEPRESSION SCREENING 06/06/2024 07/11/2023 HEPATITIS B VACCINE Aged Out No longe r eligible based on patient's age to complete this topic HIB VACCINE Aged Out No longer eligi ble based on patient's age to complete this topic HPV VACCINE Aged Out No longer eligi ble based on patient's age to complete this topic MENINGOCOCCAL (Group B) VACCINE Aged Out No longer eligible b ased on patient's age to complete this topic MENINGOCOCCAL VACCINE Aged Out No marilu alexandro eligible based on patient's age to complete this topic Care Teams Coding Validator Relationship Specialty Start Date End Date Shea Lemon PA-C [address] [place] [id number] PCP - General Physician All Around Presser 07/04/23
--- OUTSIDE RECORDS SUMMARY | 2024-07-03 09:32 | XMS_ITS | Continuity of Care Document ---
Author Organization [facility] Address [address] [place] [address] [place] [address] Phone Care Team Providers Care Watch Parts Grinder Name Role Phone Saravia OD, Mckay Unavailable Unavailable Procedures Procedure Date Office/outpatient Visit, Est Office/outpatient Visit, Est Advance Directives Directive Yes / No Effective Date File Name No Information Encounters Encounter Description Practice Location Reason(s) For Visit Diagnoses Date Provider Providers Copied on Encounter Office/outpat ient Visit, Est [facility], [address], [place], [place], [id number], [place] tel:[phone] [facility] No Information [address] Saravia OD Mckay. [address] , [address], [place], [address], [place]. tel:[phone] Family History Family Member Type Diagnosis Age At Onset No Information Payers Payer name Insurance type Covered green party ID Authoriza tion(s) No Information Social History Type Description Quantity Date Captured Comments Sex Female Smoking Status No Information Chief Complaint And Reason For Visit No Information Reason For Referral Reason For Referral No Information History Of Present Illness Encounter Date Complaint History Of Prese nt Illness No Information Functional Status Date Functional Assessmen t No Information Instructions Date Instruction Additional Infor mation No Information Assessments Type Assessment Date No Information Patient Care Teams Name Effective Dates (start - stop) Status Members No Information
--- OUTSIDE RECORDS SUMMARY | 2024-07-03 09:32 | XMS_ITS | Referral Summary ---
Author Organization [facility] Address [address] [place] [address] Care Team Providers Care Oracle Applications Analyst Name Role Phone Shea Lemon Primary Care Provider [phone] Social History Tobacco Use Types Packs/Day Years Used Date Smoking Tobacco: Never Assessed Personal Safety Answer Date Recorded Getting School Help Needed Not on file 07/30 Comments Unknown Sex and Gender Information Value Date Recorded Sex Assigned at Not on file Legal Sex Female 2:08 AM BEHAVIORAL HEALTH TECHNICIAN Gender Identity Not on file Sexual Orientation Not on file Plan of Treatment Not on file Insurance [facility]IC[facility] MEDICARE [facility] [employer] [place] [address] [place] [address] Care Teams Oracle Applications Analyst Relationship Specialty Start Date End Date Shea Lemon PA [address] [place] [id number] PCP - General Physician Telegraph Service Clerk 09/24/22
--- OUTSIDE RECORDS SUMMARY | 2024-07-03 09:32 | XMS_ITS | Clinical Summary ---
Author Organization [facility] al Address [address] [place] [address] Care Team Providers Care Research Specialist Name Role Phone Shea Lemon Primary Care Provider [phone] Social History Tobacco Use Types Packs/Day Years Used Date Smoking Tobacco: Never Assessed Personal Safety Answer Date Recorded Getting School Help Needed Not on file 07/30 Comments Unknown Sex and Gender Information Value Date Recorded Sex Assigned at Not on file Legal Sex Female 2:08 AM VEST PRESSER Gender Identity Not on file Sexual Orientation Not on file Plan of Treatment Health Maintenance Due Date Last Done Comments Depression Screening 1944 Fall Risk Assessment 1944 Hepatitis C Screening 1944 Osteoporosis Screening-Bone Density Scan 1944 DTaP/Tdap/Td Vaccine (1 - Tdap) 08/15/1955 Hepatitis B Screening 1962 Zoster Vaccine (1 of 2) 1994 Pneumococcal vaccine 65+ (1 of 1 - PCV) 2009 Well Visit 65+ 2009 Covid-19 Vaccine ( season) 2024, 06/03/2020 Influenza Vaccine (#1) 2024 03/05/2020 Insurance MEDICARE [facility] [place] MEDICARE [facility] [place] [facility] [place] MEDIC[place] Care Teams Research Specialist Relationship Specialty Start Date End Date Shea Lemon PA [address] [place] [id number] PCP - General Physician Razor Grinder 09/24/22
== END 2024-07-03 09:12 | disposition home or self-care (01) ==
PROVIDERS: PCP Physician Assistant Medical; Visit Provider Physician Assistant Medical
DX: R09.89 Other specified symptoms and signs involving the circulatory and respiratory systems (principal); R60.0 Localized edema
CPT/HCPCS: 93922

== ENCOUNTER 2025-06-03 14:03 | Outpatient (CLI) | payer MEDICARE, OTHER, SELFPAY ==
--- OUTSIDE RECORDS SUMMARY | 2025-06-03 14:17 | XMS_ITS | Clinical Summary ---
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 Gender Identity Not on file Sexual Orientation Not on file Obstetrics History Para Term AB IAB SAB Ectopic Multiple Livin g Live Births 2 2 Date Outcome GA Total Labor Labor/2nd/3rd Weight Sex Type Anes PTL Sonal A1 A5 Name Clin Last Filed Vital Signs Vital Sign Reading Time Taken Comments Blood Pressure - - Pulse - - Temperature - - Respiratory Rate - - Oxygen Saturation - - Inhaled Oxygen Concentration - - Weight 62.1 kg (137 lb) 01/15/2025 11:33 AM CDT Height 152.4 cm (5') 01/15/2025 11:33 AM CDT Body Mass Index 26.76 01/15/2025 11:33 AM CDT Plan of Treatment Health Maintenance Due Date Last Done Comments Depression Screening 1944 Fall Risk Assessment 1944 Osteoporosis Screening-Bone Density Scan 1944 DTaP/Tdap/Td Vaccine (1 - Tdap) 08/15/1955 Hepatitis B Screening 1962 Pneumococcal vaccine 65+ (1 of 1 - PCV) 1994 Zoster Vaccine (1 of 2) 1994 Well Visit 65+ 2009 Covid-19 Vaccine (3 - 2024- season) 2025, 06/03/2020 Influenza Vaccine (#1) 2025 03/05/2020 Insurance [place] [id number] MEDICARE [place] Care Teams Drupal Architect Relationship Specialty Start Date End Date Shea Lemon PA [address] [place] [id number] PCP - General Physician Certified Surgical Tech/First Assistant 09/24/22
--- OUTSIDE RECORDS SUMMARY | 2025-06-03 14:17 | XMS_ITS | Clinical Summary ---
Author Organization [facility] Address [address] [facility] [place] [address] Care Team Providers Care Licensed Sales Producer Name Role Phone Shea Lemon PA-C Primary Care Provider [phone] Source Comments [facility]non-owned Affiliates and Associated Physician Practices is amultiple site organization consisting of ambulatory clinics and hospital sitesin [place], [place], [place] and [place]. This disclosure is being madepursuant to the Care Everywhere program and may not contain all information available regarding this patient. Last updated 18.[facility] Allergies Active Allergy Reactions Criticality Noted Date Comments Codeine Nausea and/or Vomiting High 04/11/2021 Medications * Be aware that medications may not be up to date on this document. Alwaysverify current medications with the patient. 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 Gender Identity Not on file Sexual Orientation Not on file Last Filed Vital Signs Vital Sign Reading Time Taken Comments Blood Pressure - - Pulse - - Temperature - - Respiratory Rate - - Oxygen Saturation - - Inhaled Oxygen Concentration - - Weight 65.3 kg (144 lb) 07/11/2023 8:48 AM INVESTOR RELATIONS SPECIALIST Height 152.4 cm (5') 07/11/2023 8:48 AM INVESTOR RELATIONS SPECIALIST Body Mass Index 28.12 07/11/2023 8:48 AM INVESTOR RELATIONS SPECIALIST Plan of Treatment Health Maintenance Due Date Last Done Comments BONE DENSITY TESTING 1945 MEDICARE AW[place] 12 MONTHS 1944 DTAP/TDAP/TD VACCINES (1 - Tdap) 08/15/1963 PNEUMOCOCCAL VACCINE 50+ (1 of 1 - PCV) 1994 ZOSTER VACCINE (1 of 2) 1994 Respiratory Syncytial Virus (RSV) Vaccine Pt: or over 60 yrs (1 - 1-dose 75+ series) 08/15/2019 DEPRESSION SCREENING 06/06/2024 07/11/2023 COVID-19 VACCINE (3 - 2024-2 6 season) 2025 07/01/2020, 06/03/2020 INFLUENZA VACCINE (#1) 2025 HEPATITIS B VACCINE Aged Out No longe r eligible based on patient's age to complete this topic HIB VACCINE Aged Out No longer eligi ble based on patient's age to complete this topic HPV VACCINE Aged Out No longer eligi ble based on patient's age to complete this topic MENINGOCOCCAL (Group B) VACCINE SHARED DECISION-MAKING Aged Out No longer eligible based on patient's age to complete this topic MENINGOCOCCAL GROUPS A/C/Y/W VACCINE Aged Out No longer eligible b ased on patient's age to complete this topic Insurance MEDICARE [facility] [place] [address] Care Teams Licensed Sales Producer Relationship Specialty Start Date End Date Shea Lemon PA-C [address] [place] [id number] PCP - General Physician Care Provider 07/04/23
--- OUTSIDE RECORDS SUMMARY | 2025-06-03 14:17 | XMS_ITS | Clinical Summary ---
Author Organization [facility] Address [address] [place] [address] Care Team Providers Care Wall To Wall Carpet Installer Name Role Phone Justin Jeff MD Primary Care Provider Allergies Active Allergy Reactions Criticality Noted Date Comments Aspirin Nausea Only 09/17/2021 Codeine Nausea and Vomiting High 04/11/2021 Medications ALPRAZolam 0.25 MG tablet Take 0.25 mg by mouth 3 (three) times daily as needed. 03/31/2021 Active lisinopril 10 MG tablet Take 2.5 mg by mouth daily. 01/08/2021 Active pantoprazole EC 40 MG tablet Take 40 mg by mouth daily. Active Immunizations Immunization Administration Dates Next Due MODERNA COVID-19 (12+) [...] 97 11/29/2021 5:56 PM CDT Temperature 37.7 C (99.9 F) 11/29/2021 5:56 PM CDT Respiratory Rate 18 11/29/2021 5:56 PM CDT Oxygen Saturation 97% 11/29/2021 5:56 PM CDT Inhaled Oxygen Concentration - - Weight 56.7 kg (125 lb) 11/29/2021 5:56 PM CDT Height 152.4 cm (5') 11/29/2021 5:56 PM CDT Body Mass Index 24.41 11/29/2021 5:56 PM CDT Plan of Treatment Health Maintenance Due Date Last Done Comments DTaP, Tdap and Td Vaccines ( 1 - Tdap) 08/15/1963 Pneumococcal Vaccine: 50+ Years (1 of 1 - PCV) 1994 Zoster Vaccines (1 of 2) 1994 Annual Medicare Wellness Visit 2009 Dexa Scan (General) 2009 RSV Immunization or 60+ Years (1 - 1-dose 75+ series) 08/15/2019 COVID-19 Vaccine (3 - 2024-2 6 season) 2025 07/01/2020, 06/03/2020 Influenza Adult (#1) 2025 03/05/2020 Hepatitis A Vaccines Aged Out No long er eligible based on patient's age to complete this topic Meningococcal B Vaccine Aged Out No l onger eligible based on patient's age to complete this topic Meningococcal Vaccine Aged Out No marilu alexandro eligible based on patient's age to complete this topic RSV Immunizations Under 20 Months Aged Out No longer eligible b ased on patient's age to complete this topic Insurance MEDICARE [facility] Care Teams Wall To Wall Carpet Installer Relationship Specialty Start Date End Date Justin Jeff MD [address] [place] [id number] PCP - General INTERNAL MEDICINE 04/11/21
== END 2025-06-03 14:04 | disposition home or self-care (01) ==
PROVIDERS: PCP Physician Assistant Medical; Visit Provider Physician Assistant Medical
DX: M16.0 Bilateral primary osteoarthritis of hip (principal)
CPT/HCPCS: 73521